=== PATIENT | female | born 1960 | race Caucasian/White ===

== ENCOUNTER → 2023-12-15 | Outpatient (CLI) | payer OTHER | END | disposition home or self-care (01) | LOC: RAH 09:53 | PROVIDERS: ATTEND Internal Medicine Cardiovascular Disease | DX: Z13.6 Encounter for screening for cardiovascular disorders (principal) | CPT/HCPCS: 75571 ==

== ENCOUNTER 2024-02-15 11:47 | Observation (INO) | payer BC ==
[2024-02-09 14:17] VITALS: BP 128/69; PULSE 65; RESP 16; TEMP 96.8
[2024-02-09 14:36] LABS: BASOPHILS # (AUTO) 0.07 K/uL (0.00-0.20); EOSINOPHILS # (AUTO) 0.32 K/uL (0.00-0.70); EOSINOPHILS % (AUTO) 4.6 % (0.0-8.0); HEMATOCRIT 38.7 % (36-48); IMMATURE GRANULOCYTE ABSOLUTE 0.01 K/uL (0-1); LYMPHOCYTES # (AUTO) 1.9 K/uL (1.0-4.8); LYMPHOCYTES % (AUTO) 27.2 % (21.0-51.0); MEAN CORPUSCULAR HEMOGLOBIN 30.8 pg (27.0-33.0); MEAN CORPUSCULAR HGB CONC 33.1 g/dL (32.0-36.0); MEAN CORPUSCULAR VOLUME 93.3 fL (79-99); MONOCYTES # (AUTO) 0.6 K/uL (0.1-1.0); MONOCYTES % (AUTO) 9.2 % (3.0-13.0); NEUTROPHILS % (AUTO) 57.9 % (40.0-77.0); PLATELET COUNT (AUTO) 229 K/uL (130-400); RED BLOOD CELL COUNT(AUTO) 4.15 MIL/uL (4.00-5.50); RED CELL DISTRIBUTION WIDTH 12.4 % (11.0-15.5)
[2024-02-09 14:48] LABS: CREATININE 0.8 mg/dL (0.5-1.0); POTASSIUM 4.6 mmol/L (3.5-5.1)
--- NOTE | 2024-02-09 14:48 | EKG ---
[facility] Test Date: 2024-02-09 Test Time: 15:08:15 Pat Name: AIRAM CARRIONST. MARY'S MEDICAL CENTERJamil Department: [facility] Room: Gender: F Sebd Teacher: [id number] : 1960 Requested By: TRISTAN WERNER Order Number: [id number] Reading MD: Ayden Teresa Measurements Intervals [place] Rate: 64 P: 41 VT: 181 QRS: 14 QRSD: 107 T: 26 QT: 406 QTc: 420 Interpretive Statements Sinus rhythm No previous ECG available for comparison Electronically Signed On 02-10-2024 12:20:10 [employer]IOR [employer] CAR[employer] by Ayden Teresa Please click the below link to view image of tracing.
[2024-02-15] VITALS (21 sets, daily range): BP systolic 118–148; BP diastolic 62–78; PULSE 64–101; RESP 15–21; TEMP 96.8–98.1; O2SAT 98–99
[~2024-02-15] VITALS: Ht 160 cm; Wt 73.5 kg
[~2024-02-15 11:47] MED LIST: ALEN35TA53 PO; OXYB5TAB20 PO; PANT40TA54 PO; VITAMIN D PO
[2024-02-15] MEDS: acetaMINOPHEN 100 ML ONE (13:34)
[2024-02-15] MEDS: FAMOTIDINE 20MG VIAL IV ONE (13:34)
[2024-02-15] MEDS: LACTATED RINGERS 1000ML 1,000 ML IV ONE (13:37)
[2024-02-15] MEDS: ceFAZolin SODIUM 2 GM VIAL ONE (13:38)
[2024-02-15] MEDS ORDERED: ketaMINE 50MG/ML SYRINGE 50 MG/ML DISP.SYRIN ONE (13:39)
[2024-02-15] MEDS ORDERED: LIDOCAINE PF 100MG/5ML (2%) SYRINGE 5ML ONE (13:43)
[2024-02-15] MEDS ORDERED: proPOFol 10 MG/ML 20ML VIAL IV ONE (13:43)
[2024-02-15] MEDS ORDERED: rocuRONium bROMide 10MG/1ML 5ML VL ONE (13:43)
[2024-02-15] MEDS ORDERED: FENTanyl CITRate PF 50 MCG/1 ML 2ML VIAL ONE (13:45)
[2024-02-15] MEDS ORDERED: dexaMETHasone SOD PHOSPHATE 10MG/ML 1ML VIAL ONE (14:03)
[2024-02-15] MEDS ORDERED: phenylEPHRINE HCL 10 MG/ML 1ML VIAL IV ONE (14:10)
[2024-02-15] MEDS: BUPIvacaine/PF 0.25% 30ML VIAL IJ ONE (14:16)
[2024-02-15] MEDS ORDERED: MEPERIDINE-PF 25 MG/ML SYG ONE (15:51)
--- NOTE | 2024-02-15 16:15 | OP ---
Operative Note: DATE OF PROCEDURE: 02/15/24 SURGEON: TRISTAN WERNER MD PRODUCE ASSOCIATE: [Please refer to operative record] ANESTHESIA: [General and local] ANESTHESIOLOGIST/WELDING PANTOGRAPH MACHINE OPERATOR: [Please refer to operative record] PREOPERATIVE DIAGNOSIS: [Diaphragmatic hernia, severe gastroesophageal reflux disease] POSTOPERATIVE DIAGNOSIS: [Same] SYNOPSIS: [3 cm diaphragmatic hernia with incarcerated fundus cardia, successfully reduce, primarily repair. Reinforced with mesh. Anterior partial fundoplication performed] PROCEDURE: [Robotic assisted laparoscopic hiatal hernia repair, mesh reinforcement, anterior partial fundoplication, intraoperative EGD] ESTIMATED BLOOD LOSS: [20 cc] INDICATIONS: [Patient is a 63-year-old female with chronic heartburn. Found to have a diaphragmatic hernia on EGD, confirmed on imaging. Patient failed medical management with dietary changes in medication. Patient was presented with surgical option of hiatal hernia repair with mesh and partial fundoplication. All questions were answered. Risks, benefits, alternatives were discussed with the patient. Patient agreed to proceed with surgical procedure.] DESCRIPTION OF PROCEDURE: [After appropriate consent was obtained, the patient was brought into the operating room and placed in supine position on the operating table. SCDs were placed, preop antibiotics given. Patient underwent induction of general anesthesia, endotracheal intubation. Patient was then prepped and draped in usual sterile fashion. Time-out was performed. Through a left subcostal incision, Veress needle was inserted into the peritoneal cavity. Insufflation was allowed to 12 mmHg. Through a supraumbilical incision, 8 mm trocar and laparoscope were inserted into the peritoneal cavity using Optiview. Veress needle and this vicinity were examined with no signs of injury. Rest of my trocars were all placed under direct visualization. Through a epigastric incision, Shobha liver retractor was placed in order to retract the left lobe of the liver anteriorly. Patient was positioned on a reverse Trendelenburg at 20 position. The Farrukh robot was docked. Upon evaluation of the diaphragmatic hiatus, there was a moderate size hernia measuring about 3 cm containing incarcerated cardia and fundus. With gentle traction, the hiatal hernia contents were slowly reduce. Our dissection began by incising and dividing pars flaccida with the vessel sealer, this was follow up towards the diaphragm. the peritoneum around the hiatal orifice was incised in an avascular plane. The hiatal orifice was dissected circumferentially using vessel sealer. The right crura was identified and a plane was developed between the right hiral and the right wall of the esophagus. The dissection was accomplished with combination of vessel sealer dissection and blunt dissection. On the posterior aspect of the esophageal wall, the left hiral was identified and the dissection was followed towards the left hiral. Once the esophagus was fully mobilized we then focused in the intra mediastinal dissection. This was accomplished with very little vessel sealer dissection mostly blunt dissection. We were able to get 3 cm of intra-abdominal esophagus. Endoscope was then performed by placing scope through the mouth through the esophagus and into the stomach this confirmed that the GE junction was below the diaphragmatic hiatus. With the endoscope in place, we then proceeded to perform our cruroplasty. This was achieved by approximating the left and the right hiral in the posterior aspect of the esophagus by using two 0 V lock nonabsorbable suture in a running fashion. At the end of the cruroplasty the stomach was successfully placed back in the peritoneal cavity there was only one instrument that was able to pass through the hiatus at this time. The repair was then reinforced using a [address] mesh in a horseshoe fashion. It was sutured to the diaphragm using 3-0 V lock absorbable suture in a couple of interrupted 2-0 silk sutures. We then performed a anterior partial fundoplication by grasping the fundus from left to right anterior to the esophagus. the fundoplication was sutured in place by using 2-0 silk suture in a running fashion from fundus to diaphragm. Endoscopy was then performed revealing no air leaks, no stenosis through the GE junction, appropriate reduction of hiatal hernia, and intact wrap. This concluded our hiatal hernia repair. The Farrukh robot was then undocked. Final inspection revealed adequate hemostasis no concerns for leakage. The abdomen was allowed to deflate. All instruments were removed. Counts were correct at the end of the case. Incisions were closed with 4-0 Monocryl suture. Dermabond was applied over the incisions. Patient tolerated the procedure well. Patient was transferred to the recovery area in a good condition.] TRISTAN WERNER MD Feb 15, 2024 16:15
[2024-02-15] MEDS ORDERED: PROCHLORPERAZINE 10MG/2ML INJ IV PRN (16:30)
[2024-02-15] MEDS ORDERED: ondanSETRON 4MG INJ IVP PRN (16:30)
[2024-02-15] MEDS: ondanSETRON 4MG INJ ONE (16:30)
[2024-02-15] MEDS: ketOROlac 15MG/ML VIAL (15MG/ML) IV SCH (16:30)
[2024-02-15] MEDS ORDERED: HYDROcod/acetaMINOPHEN 7.5/325 MG 15 ML UDCUP PO PRN (16:30)
[2024-02-15] MEDS: MEPERIDINE-PF 25 MG/ML SYG ONE (16:31)
--- NOTE | 2024-02-15 17:15 | NUR ---
PATIENT ARRIVED TO UNIT NO S/S OF DISTRESS NOTED. 6 ABDOMINAL INCISIONS NOTED CLEAN AND INTACT SEALED WITH DERMABOND. POST OP VITALS STARTED. SCDS ON . BED IN LOWEST POSITION AND CALL LIGHT IN REACH
[2024-02-15] MEDS: hydroMORPHone 0.5 MG SYG (0.5MG/0.5ML) IVP PRN (18:29)
[2024-02-16] VITALS: BP 137/77; PULSE 101; RESP 16; TEMP 97.7
[2024-02-16 04:10] VITALS: BP 146/70; PULSE 75; RESP 18; TEMP 97.6
[2024-02-16] MEDS: LACTATED RINGERS 1000ML 1,000 ML IV SCH (05:04)
[2024-02-16 08:00] VITALS: BP 132/70; PULSE 80; RESP 16; TEMP 97.7; O2SAT 97
--- NOTE | 2024-02-16 08:07 | DS ---
Discharge Summary Assessment Assessment/Plan: Postop day one. We will continue to monitor pain and treat as needed, continue GI/DVT prophylaxis and continue to encourage p.o. intake and ambulation. Diet, hydration, sleep hygiene and activity restrictions discussed in detail. All questions were answered. Plan is for discharge home today with outpatient follow up in 5-10 days, sooner if needed. Patient understands and agrees. OK for patient to restart all home medication. Post op pain meds sent to pharmacy from our out pt clinic. Post op FU already scheduled for next week. Hospital Course Objective: Abdominal exam: Incisions clean, dry and intact, appropriate tenderness to palpation, no erythema, no induration or signs of infection Bilateral lower extremities: SCDs in place, compartment soft, painless ankle motion Postop day one. Patient is status post robot assisted hiatal hernia repair with the absorbable mesh reinforcement and anterior fundoplication. She is awake, alert, oriented, resting comfortably in bed in no acute distress. No significant complaints today. Tolerating p.o. intake and ambulating without difficulty. Ready for home today. KYLE HILLS MD Feb 16, 2024 08:07
[2024-02-16] MEDS: FAMOTIDINE 20MG VIAL IV ONE (09:43)
[2024-02-16] MEDS: ENOXAPARIN SODIUM 30 MG/0.3 ML SQ SCH (09:43)
[2024-02-16] MEDS: oxyBUTYnin chloRIDE 5 MG TABLET PO SCH (09:43)
[2024-02-16 12:03] VITALS: BP 137/75; PULSE 81; RESP 18; TEMP 97.9
--- NOTE | 2024-02-16 15:35 | NUR ---
DCP CM SPOKE TO PT ASSESSMENT DONE. PATIENT IS INDEPENDENT PRIOR TO SURGERY, LIVES AT HOME WITH SPOUSE. DENIES ANY EQUIPMENT/SERVICES. FEELS SAFE TO GO BACK HOME, STILL DRIVE AND WORK, SPOUSE ABLE TO ASSIST WITH TRANSPORTATION AND NEEDS NECESSARY. DCP HOME ONCE STABLE. CM TO CONTINUE TO FOLLOW UP. Addendum: 02/16/24 at 1536 by VIKKI HILLS LVN CM Amended: Links added.
[2024-02-16 16:00] VITALS: BP 135/68; PULSE 72; RESP 18; TEMP 98.3
--- NOTE | 2024-02-16 18:51 | NUR ---
discharged gave patient printed discharge instructions, per patient she already has her follow up appointments scheduled. Discussed diet, follow up visits, activity, and medications. Educated patient on after care, post surgery. Answered patient questions, patient and family understood.
== END 2024-02-16 18:55 | disposition home or self-care (01) ==
LOC: DAH 11:47 → DAHIP 11:48 → INTOOBSV 11:48 → 4BH 17:15
PROVIDERS: ADMIT Surgery; ATTEND Surgery
DX: K44.9 Diaphragmatic hernia without obstruction or gangrene (principal); E78.5 Hyperlipidemia, unspecified; K21.00 Gastro-esophageal reflux disease with esophagitis, without bleeding; Z79.899 Other long term (current) drug therapy
CPT/HCPCS: 80048; 85025; 86850 ×2; 86900 ×2; 86901 ×2; 36415 ×2; 93005; 43282; 96374; 96375 ×2; 96376; 96372; 97161; 97116; A6260; A4663; A4215 ×2; J7120; J3490 ×4; J3010; J1100; J0665; J2003; J2704; J2405; J2175 ×2; J1885 ×3; J2371; J1171; J0690; A4930 ×3; C1781; A4223 ×2; A4222; A4221; A4216; A4600; G0378 ×9; J1650; 43235